=== PATIENT | male | born 1955 | race Caucasian/White ===

== ENCOUNTER 2018-04-27 08:57 | Outpatient (CLI) | payer MEDICARE ==
--- NOTE | 2018-04-27 11:50 | MRI ---
MRI CERVICAL SPINE WITHOUT CONTRAST: HISTORY: M48.02, cervical stenosis. COMPARISON: None. FINDINGS: The cerebellar tonsils remain above the foramen magnum. Background signal of the cord is normal. No adenopathy. Paraspinal musculature is normal. Levels are as follows: C2-3: Low-grade central posterior disk protrusion. No significant neural foraminal or spinal canal narrowing. C3-4: Mild uncinate process hypertrophy. Mild disk desiccation. No neural foraminal or spinal benjamin l narrowing. C4-5: Moderate degenerative disk space height loss. Moderate uncinate process hypertrophy. Mild fa cet arthropathy. Posterior disk-osteophyte complex. The spinal canal is not significantly narrowed. C5-6: Moderate degenerative disk space height loss. Circumferential disk bulge. There is asymmetri c left-sided posterior disk osteophyte complex causing moderate to severe left-sided neural foramina l narrowing. No significant right-sided neural foraminal narrowing. C6-7: Mild disk desiccation. No neural foraminal or spinal canal narrowing. IMPRESSION: Moderate spondylosis as described above worst at C5-6. POS: [facility]
--- NOTE | 2018-04-27 12:01 | MRI ---
MRI THORACIC SPINE WITHOUT CONTRAST: Date: 04/27/18 HISTORY: Stenosis. Pain. COMPARISON: None. FINDINGS: No fracture or malalignment. There are moderate spondylotic changes of the spine with moderate levosc oliosis of the upper thoracic spine. There is associated Modic Type I and Type II end plate changes. There are multilevel low grade posterior disc osteophyte complexes throughout the spine without signi ficant spinal canal narrowing. A broad based posterior disc osteophyte complex at T8-9 causes moderat e bilateral neural foraminal narrowing. Spinal canal at this level measures approximately 9 mm. At T9 -T10, there is another posterior disc osteophyte complex also causing moderate bilateral neural kevin inal narrowing, as well as effacement of the ventral CSF space. Spinal canal at this level measures a pproximately 9 mm. Aortic contour is nonaneurysmal. Paraspinal musculature is symmetric. IMPRESSION: Mild to moderate spondylosis as described above, predominately due to levoscoliosis. There is subsequ ent multilevel neural foraminal narrowing with concern for possible nerve root impingement. POS: [facility]
--- NOTE | 2018-04-27 12:09 | MRI ---
MRI LUMBAR SPINE WITHOUT CONTRAST: HISTORY: Pain. Spinal stenosis. COMPARISON: None. FINDINGS: No hydronephrosis. No retroperitoneal adenopathy. The aorta is nonaneurysmal. There are multilevel modic type I and type II endplate changes throughout the lumbar spine, worse at L3-L4, L4-L5, and L5 -S1. There is narrowing at the L3-L4, L4-L5, L5-S1 interspinous spaces, between the spinous processes, wit h some sclerosis and erosive changes. There is narrowing of the spinal canal throughout the lower lumbar spine due to increased posterior e pidural fat. The conus medullaris terminates at the inferior endplate of L1. Levels are as follows: T12-L1: No significant neural foraminal or spinal canal narrowing. Normal disks. L1-L2: No neural foraminal or spinal canal narrowing. Normal disks. L2-L3: Mild disk desiccation. Circumferential disk bulge, mild. Moderate facet arthropathy. Poste rior disk osteophyte complexes causing moderate bilateral neural foraminal narrowing. Abnormally inc reased posterior epidural fat. The spinal canal measures approximately 7 mm. L3-L4: Posterior disk osteophyte complex, chronic. There is abnormal increased epidural fat posteri maurice. The spinal canal measures approximately 6 mm. Moderate left and moderate to severe right-side d neural foraminal narrowing with abutment of the exiting and traversing right-sided nerve roots. L4-L5: Moderate degenerative disk space height loss and circumferential disk bulge. Moderate facet arthrosis. Moderate bilateral neural foraminal narrowing with abutment of the exiting and traversing right-sided nerve roots and a traversing left-sided nerve root. The spinal canal is narrowed approx imately 6 mm. Abnormal increase in dorsal epidural fat. L5-S1: Severe degenerative disk space height loss. Large posterior disk osteophyte complex. Extens julio facet arthrosis. There is moderate right and moderate to severe left-sided neural foraminal narr owing. There is abutment of the exiting and traversing left-sided nerve roots and traversing right-s ided nerve root. IMPRESSION: Multilevel neural foraminal and spinal canal narrowing, as described above, with multiple levels of n erve root abutment and spinal stenosis. POS: [facility]
== END 2018-04-27 08:58 | disposition home or self-care (01) ==
LOC: MRI 08:57
PROVIDERS: ATTEND Family Medicine
DX: M47.22 Other spondylosis with radiculopathy, cervical region (principal); M48.02 Spinal stenosis, cervical region; M48.061 Spinal stenosis, lumbar region without neurogenic claudication; M99.83 Other biomechanical lesions of lumbar region; M99.82 Other biomechanical lesions of thoracic region
CPT/HCPCS: 72141; 72146; 72148

== ENCOUNTER 2018-05-22 10:21 | Outpatient (CLI) | payer MEDICARE | END 2018-05-22 10:22 | disposition home or self-care (01) | LOC: BICCT 10:21 | PROVIDERS: ATTEND Family Medicine | DX: R91.8 Other nonspecific abnormal finding of lung field (principal); J98.11 Atelectasis; S22.41XD Multiple fractures of ribs, right side, subsequent encounter for fracture with routine healing | CPT/HCPCS: 71250 ==

== ENCOUNTER 2018-09-27 07:52 | Outpatient (CLI) | payer MEDICARE ==
--- NOTE | 2018-09-27 09:47 | CT ---
CHEST CT WITH CONTRAST: INDICATIONS: Tobacco abuse. COMPARISON: Chest CT exam from 05/22/2018. FINDINGS: There is a persistent focus of consolidation involving the medial aspect of the right middle lobe. S cattered granulomatous calcifications are present. There is no pleural effusion or pneumothorax. Th ere are stable borderline-sized mediastinal lymph nodes. No acute pathology of the partially imaged upper abdomen. Chronic rib deformities are again seen within the left chest. IMPRESSION: 1. Persistent focus of consolidation at the medial aspect of the right middle lobe. Consider a six- month follow-up examination for continued surveillance. 2. Granulomatous disease. CODE T POS: [facility]
[2018-09-27] MEDS ORDERED: ISOVUE-370 76%-LOCM 1 ML ONE (16:28)
== END 2018-09-27 07:53 | disposition home or self-care (01) ==
LOC: BICCT 07:52
PROVIDERS: ATTEND Family Medicine
DX: R91.8 Other nonspecific abnormal finding of lung field (principal); F17.200 Nicotine dependence, unspecified, uncomplicated; D71 Functional disorders of polymorphonuclear neutrophils
CPT/HCPCS: 71260; 82565

== ENCOUNTER 2019-08-27 12:23 | Emergency (ER) | payer MEDICARE ==
[2019-08-27] MEDS ORDERED: Ketorolac Tromethamine 30 MG/ML VIAL ONE (13:04)
--- NOTE | 2019-08-27 13:34 | RAD ---
EXAM: XR Lumbar Spine 2 Or 3 View PROVIDED CLINICAL HISTORY: Chronic neck and low back pain. COMPARISON: 07/26/2013. FINDINGS: There are 5 nonrib-bearing lumbar-type vertebral bodies. There is straightening of the normal lumbar curvature. Multilevel degenerative changes are seen in the lower lumbar spine. There is narrowing of the intervertebral disc spaces with vacuum phenomenon present at the L3-4, L4-5, and L5-S1 levels with osteophytes seen anteriorly at these levels. Narrowing of the intervertebral disc spaces has progressed compared to study in 2013. Facet degenerative change are seen in the lower lumbar spine. Vertebral body heights are within normal limits. No fracture or subluxation is seen. There is slight left convex curvature of the lumbar spine. Vascular calcifications are seen in the abdominal aorta and involving the iliac arteries. Calcificati ons are seen in the expected location of the prostate gland. IMPRESSION: Degenerative changes primarily involving the lower lumbar spine which have progressed when compared t o the study in 2012.
--- NOTE | 2019-08-27 14:14 | RAD ---
CERVICAL SPINE 3 VIEWS: Date: 08/27/19 HISTORY: Cervical pain. COMPARISON: 07/26/13. FINDINGS: Degenerative changes at the mid and lower cervical spine again noted. Mild disc narrowing and degener ative hypertrophic changes are noted at C4-5, C5-6, and C6-7. Loss of disc space most prominent at C 4-5 and C5-6, similar in appearance to the prior exam. Anterior osteophytes at these levels are also similar. Vertebral body height is preserved. There is mild anterior wedging of C5 which is stable fro m the prior exam of 2012. IMPRESSION: Degenerative changes of mid and lower cervical spine, most prominent at C4-5 and C5-[address] able in appearance from prior exam of 2012. POS: [facility]
== END 2019-08-27 14:06 | disposition home or self-care (01) ==
LOC: ERS 12:23
DX: G89.29 Other chronic pain (principal); M54.2 Cervicalgia; M54.5 Low back pain; E78.5 Hyperlipidemia, unspecified; E78.00 Pure hypercholesterolemia, unspecified; I10 Essential (primary) hypertension; F17.210 Nicotine dependence, cigarettes, uncomplicated; Z79.899 Other long term (current) drug therapy
CPT/HCPCS: 72040; 72100; 96372; J1885

== ENCOUNTER 2019-09-18 09:25 | Emergency (ER) | payer MEDICARE ==
[2019-09-18] MEDS ORDERED: Ketorolac Tromethamine 60 MG/2 ML VIAL ONE (10:43)
== END 2019-09-18 10:50 | disposition home or self-care (01) ==
LOC: ERS 09:25
DX: M54.5 Low back pain (principal); E78.5 Hyperlipidemia, unspecified; E78.00 Pure hypercholesterolemia, unspecified; I10 Essential (primary) hypertension; F17.200 Nicotine dependence, unspecified, uncomplicated; Z79.899 Other long term (current) drug therapy
CPT/HCPCS: 99283; J1885

== ENCOUNTER 2019-10-12 07:45 | Outpatient (CLI) | payer MEDICARE ==
[2019-10-12 08:51] LABS: Estimated GFR-MDRD - POC Greater than 90
--- NOTE | 2019-10-12 09:37 | CT ---
Exam: Chest CT scan with IV contrast: HISTORY: Shortness of breath COMPARISON: 09/27/2018 FINDINGS: Stable persistent pleural-based parenchymal changes in the medial aspect of the right middle lobe pro bably scarring or chronic atelectasis. There are a few scattered calcified granulomata bilaterally. There are some scattered calcified lymph nodes within the mediastinum system with old granulomatous d isease. No pleural effusion or pericardial effusion. No mediastinal mass or adenopathy. Visualized upper abdomen appears unremarkable. IMPRESSION: Stable old granulomatous disease. Stable pleural-based parenchymal changes in the medial aspect of the right middle lobe evidence for s carring or chronic atelectasis.
[2019-10-12] MEDS ORDERED: Iopamidol 370 76% 100 ML VIAL ONE (11:36)
== END 2019-10-12 07:46 | disposition home or self-care (01) ==
LOC: CT 07:45
PROVIDERS: ATTEND Family Medicine
DX: R91.8 Other nonspecific abnormal finding of lung field (principal); D71 Functional disorders of polymorphonuclear neutrophils
CPT/HCPCS: 71260; 82565; Q9967

== ENCOUNTER 2019-10-22 08:51 | Outpatient (CLI) | payer MEDICARE ==
--- NOTE | 2019-10-22 10:01 | MRI ---
MR the lumbar spine without contrast INDICATION: Lumbar radiculopathy COMPARISON: Prior MR the lumbar spine dated April 27, 2018 TECHNIQUE: Multiplanar multisequence MR images were obtained of lumbar spine without IV contrast. FINDINGS: Bone marrow: There is Modic endplate degenerative change at L3-4, L4-5 and L5-S1. There is prominent loss of the normal disc space height at L3-4 through L5-S1. There is moderate loss of normal disc space height and signal at L2-3. Distal spinal cord and conus: Normal. The conus seen to terminate at L1. Visualized retroperitoneum and paraspinal soft tissues: Normal. Vertebral levels: L5-S1: At L5-S1 there is a broad-based disc osteophyte complex and facet hypertrophy in addition to l oss of disc space height inducing mild right and moderate left neural foraminal narrowing. The degree of neural foraminal narrowing is stable to the comparison.. L4-5: There is a broad-based disc bulge with facet hypertrophy and ligamentum flavum hypertrophy now inducing moderate central canal narrowing where previously it was inducing only mild central canal narrowing. The disc bulge and facet hypertrophy induces mild bilateral neural foraminal narrowing whi ch has also progressed from the prior exam. L3-4: There is an asymmetric to the right broad-based disc bulge with facet hypertrophy inducing mild central canal narrowing with moderate to severe right neural foraminal narrowing. This is stable to the prior exam. L2-3: There is a broad-based disc bulge that is asymmetric to the left. This is inducing stable mild left neural foraminal narrowing. L1-L2: No appreciable central canal or neuroforaminal narrowing. T12-L1: No appreciable central canal or neuroforaminal narrowing. IMPRESSION: 1. Worsening broad-based disc bulge and facet hypertrophy at L4-5 induces worsening moderate central canal narrowing with worsening mild bilateral neural foraminal narrowing. 2. Stable neural foraminal narrowing at L5-S1, L3-4 and L2-3 as above. 3. Stable mild central canal narrowing at L3-4.
== END 2019-10-22 08:52 | disposition home or self-care (01) ==
LOC: BICMRI 08:51
PROVIDERS: ATTEND Neurological Surgery
DX: M54.16 Radiculopathy, lumbar region (principal); M48.8X6 Other specified spondylopathies, lumbar region; M48.061 Spinal stenosis, lumbar region without neurogenic claudication; M48.07 Spinal stenosis, lumbosacral region
CPT/HCPCS: 72148

== ENCOUNTER 2020-04-03 09:15 | Outpatient (CLI) | payer MEDICARE ==
--- NOTE | 2020-04-03 15:22 | MRI ---
MRI CERVICAL SPINE WITHOUT CONTRAST: 04/03/20 HISTORY: Acute neck pain. COMPARISON: Comparison made to MRI of the cervical spine from 04/27/18. FINDINGS: Degenerative changes of the cervical spine again noted. Osteophytes from the cervical vertebra most p rominent at C3, C4, C5 and C6 levels. Mild loss disc space at C4-5 and C5-6 appears stable from the p rior exam. No evidence of vertebral body edema. No acute compression. Mild posterolisthesis at C5-6 is again seen measured at 2 to 3 mm. This is stable from 2018. C3-4: Mild posterior disc bulge and spondylosis efface the anterior subarachnoid space. No significan t cord impingement. No foraminal stenosis. C4-5: Posterior disc bulge and spondylosis abut the anterior cord. Mild left foraminal stenosis due t o facet and uncinate hypertrophy. C5-6: Mild posterolisthesis noted above. Posterior disc bulge and spondylosis efface the anterior sub arachnoid space. These changes abut the anterior cord on the left. There is left foraminal stenosis d ue to the disc osteophyte complex and facet hypertrophy. C6-7: No significant disc bulge or spondylosis. The anterior subarachnoid space is well preserved. No central canal or foraminal stenosis. Cervical cord signal is normal. IMPRESSION: Degenerative changes. Degenerative disc change are prominent at C4-5 and C5-6 with foraminal stenosis at these levels as described above. Findings are similar to the exam of 2018. POS: [facility]
== END 2020-04-03 09:16 | disposition home or self-care (01) ==
LOC: BICMRI 09:15
PROVIDERS: ATTEND Neurological Surgery
DX: M54.2 Cervicalgia (principal); M47.812 Spondylosis without myelopathy or radiculopathy, cervical region; M50.321 Other cervical disc degeneration at C4-C5 level; M48.02 Spinal stenosis, cervical region
CPT/HCPCS: 72141

== ENCOUNTER 2020-06-04 10:53 | Outpatient (CLI) | payer MEDICARE ==
--- NOTE | 2020-06-04 14:21 | CT ---
CT lumbar spine noncontrast: 06/04/2020 HISTORY: 64-year-old male with lumbar radiculopathy and low back pain comparison: No prior lumbar spine CTs. FINDINGS: Review of CT chest of 10/12/2019 demonstrates 12 fully formed paired ribs. Next level, L1, has bilate ral tiny accessory ribs. Last lumbar level is L5. Vacuum joint phenomenon and at least mild sclerosis of bilateral SI joints. No vertebral body collapse. T12-L1: Disc space maintained. Mild disc bulge. No central or neural foraminal stenosis. L1-2: Essentially normal. L2-3: Mild disc space narrowing. Diffuse disc bulge. Mild bilateral facet DJD with mild ligamentum fl avum thickening. Mild central spinal canal stenosis. Posterior epidural fat pad. Mild to moderate thecal sac stenosis. Mild bilateral neural foraminal stenosis. L3-4: Mild focal levoscoliosis centered at this level. Mild chronic grade 1 left lateral subluxation of L3 on L4. Asymmetrically severe right-sided discogenic degenerative changes, with severe right disc space narrowing, right vacuum disc phenomenon, right endplate sclerosis, and multiple tiny right subcortical endplate focal defects plus right lateral-far lateral prominent disc-osteophyte complex. Mild to moderate central spinal canal stenosis. Diffuse disc bulge-osteophyte complex. Poste rior epidural fat pad. Mild to moderate central spinal canal stenosis. Moderate to severe thecal sac stenosis. In addition to the to the diffuse disc bulge, there is a superimposed right paracentral , and right lateral asymmetrical disc bulge or disc herniation that further indents the right side of the thecal sac. Apparently severe right neural foraminal stenosis. L4-5: Severe disc space narrowing. Vacuum disc phenomenon. Prominent diffuse disc bulge. Moderate rig ht neural foraminal stenosis. Moderate to severe left neural foraminal stenosis. Left vacuum facet joint phenomenon. Mild left facet DJD. Mild central spinal canal stenosis. Prominent posterior epidur al fat pad. Severe thecal sac stenosis. L5-S1: Severe disc space narrowing. Vacuum disc phenomenon. Endplate sclerosis. Central and bilateral paracentral chronic prominent disc-osteophyte complex indents the ventral surface of thecal sac, and chronically abuts and slightly posteriorly displaces bilateral S1 nerve roots. No central spinal canal stenosis or thecal sac stenosis despite this. Moderate right neural foraminal stenosis. Severe left neural foraminal stenosis. Bilateral mild facet DJD. IMPRESSION: 1. Lumbar spondylosis with severe degenerative disc disease at the lowest 3 levels; associated with d egenerative levoscoliosis centered at L3-4. 2. High-grade right neural foraminal stenosis at L3-4 and severe left neural foraminal stenosis at L5 -S1 and L4-5. 3. Multilevel thecal sac stenosis (which, as usual, appears worse on CT than MRI). This includes rebecca re thecal sac stenosis (but not the entire spinal canal) at L4-5.
== END 2020-06-04 10:54 | disposition home or self-care (01) ==
LOC: BICCT 10:53
PROVIDERS: ATTEND Neurological Surgery
DX: M47.26 Other spondylosis with radiculopathy, lumbar region (principal); M51.17 Intervertebral disc disorders with radiculopathy, lumbosacral region; M41.9 Scoliosis, unspecified; M48.061 Spinal stenosis, lumbar region without neurogenic claudication; M48.07 Spinal stenosis, lumbosacral region
CPT/HCPCS: 72131

== ENCOUNTER 2020-06-20 05:12 | Outpatient (CLI) | payer MEDICARE, OTHER ==
[2020-06-20 17:20] LABS: SARS-CoV-2 MS2 Positive; SARS-CoV-2 N Gene Negative; SARS-CoV-2 S Gene Negative; SARS-CoV-2 by NAA Not Detected (NotDetected); SARS-CoV-2 orf1ab Negative
== END 2020-06-20 05:13 | disposition home or self-care (01) ==
LOC: LABBT 05:12
PROVIDERS: ATTEND Emergency Medicine
DX: Z01.818 Encounter for other preprocedural examination (principal); Z11.59 Encounter for screening for other viral diseases; M54.16 Radiculopathy, lumbar region
CPT/HCPCS: 93005; U0003; 87635; 93010

== ENCOUNTER 2020-06-25 06:09 | Day surgery (SDC) | payer MEDICARE ==
[2020-06-18 15:12] VITALS: BMI 29.9
--- NOTE | 2020-06-24 15:46 | HP ---
HISTORY OF PRESENT ILLNESS: Mr. Lopes is a 64-year-old gentleman, who is known to us from prior evaluations of low back pain and bilateral leg pains in poly-dermatomal distributions. He has attempted countless conservative methods to manage his pain including pain management with injections, medications as well as with physical therapy. All of these have which failed, and as such, hopes to move forward with possible surgical intervention. He has new MRI scan from [place] that reveals significant stenosis from L4 through S1. He has particularly significant foraminal stenosis at both of these levels. He hopes to discuss possible surgical management. PAST MEDICAL HISTORY: Significant for hypercholesterolemia, chronic pain syndrome, depression, migraine, hypotension, and asthma. PAST SURGICAL HISTORY: Lumbar decompression and a rhizotomy procedure. CURRENT MEDICATIONS: 1. Pravastatin. 2. Lexapro. 3. Flexeril. 4. Celecoxib. 5. ProAir. 6. Lyrica. 7. Fletcher. 8. Alprazolam. 9. Clonazepam. ALLERGIES: NO KNOWN DRUG ALLERGIES. PHYSICAL EXAMINATION: The patient is alert and oriented x3. Gait is severely antalgic and slowed. Lower extremity motor exam is normal, although limited by pain. ASSESSMENT: Lumbar spinal stenosis and radiculopathy. PLAN: Dr. Felder met with the patient, reviewed imaging, and advocated for a lumbar decompression and fusion from L4 through S1. He explained to the patient the risks, benefits, and alternatives to the procedure. The patient expressed understanding and elected to move forward with surgery as discussed. I do believe the patient is mentally competent and capable of making medical decisions for himself, and we will move forward with surgery as planned. Job ID: [id number]
[2020-06-25] MEDS ORDERED: Famotidine/PF 20 mg/2ml Vial ONE (06:21)
[2020-06-25] MEDS ORDERED: Fentanyl 100 MCG/2 ML VIAL ONE ×5 (06:21→11:28)
[2020-06-25] MEDS ORDERED: SUGAMMADEX SODIUM 500 MG/5 ML VIAL ONE (06:21)
[2020-06-25] MEDS ORDERED: Bupivacaine PF 0.5% 30 ML VIAL ONE (06:39)
[2020-06-25] MEDS ORDERED: EPINEPHrine 1 MG/ML AMP ONE (06:39)
[2020-06-25] MEDS ORDERED: Thrombin 5000 UNITS/5 ML VIAL ONE (06:39)
[2020-06-25] MEDS ORDERED: Midazolam HCl 2 mg/2 ml Vial ONE (07:01)
[2020-06-25] MEDS ORDERED: Ondansetron PF 4 MG/2 ML Vial ONE (09:55)
[2020-06-25] MEDS ORDERED: Dexamethasone 20 MG/5 ML VIAL ONE (09:55)
[2020-06-25] MEDS ORDERED: Naloxone HCl 0.4 mg/ml Vial ONE (09:55)
[2020-06-25] MEDS ORDERED: Lidocaine 1% PF 5 ML VIAL ONE (09:55)
[2020-06-25] MEDS ORDERED: Rocuronium Bromide 10 MG/ML (10ML VIAL) ONE (09:55)
[2020-06-25] MEDS ORDERED: Metoclopramide HCl 10 MG/2 ML VIAL ONE (09:55)
[2020-06-25] MEDS ORDERED: PROPOFOL 200 MG/20 ML VIAL ONE (09:55)
[2020-06-25] MEDS ORDERED: Ketorolac Tromethamine 30 MG/ML VIAL ONE (09:55)
[2020-06-25] MEDS ORDERED: EPHEDRINE 25 MG/5 ML SYRINGE ONE (09:55)
[2020-06-25] MEDS ORDERED: PHENYLEPHRINE-NS 100 MCG/ML 10 ML SYRINGE ONE (09:55)
[2020-06-25] MEDS ORDERED: Ondansetron HCl/PF 4 MG/2 ML Vial IVP PRN (10:01)
[2020-06-25] MEDS ORDERED: Promethazine HCl 25 MG/ML VIAL IM PRN (10:01)
[2020-06-25] MEDS ORDERED: HYDROmorphone 2 MG/ML VIAL SLOW IVP PRN (10:01)
[2020-06-25] MEDS ORDERED: Promethazine HCl 25 MG/ML VIAL SLOW IVP PRN (10:01)
[2020-06-25] MEDS ORDERED: Tamsulosin HCl 0.4 MG CAP ONE (10:58)
[2020-06-25] MEDS ORDERED: Morphine 4 MG/ML VIAL ONE (11:15)
[2020-06-25] MEDS ORDERED: Morphine 2 MG/ML VIAL ONE (11:36)
--- NOTE | 2020-06-25 11:52 | OP ---
DATE OF PROCEDURE: 06/25/2020 VICE PRESIDENT OF OPERATIONS: Norman Mclean PA-C INDICATION: Pain. DIAGNOSES: Advanced degenerative disk disease with associated low back pain and lumbar radiculopathy. PROCEDURES PERFORMED: L4-S1 posterolateral instrumented fusion, bilateral L4-L5 and L5-S1 laminotomies, bilateral L5-S1 facetectomies, placement of allograft, and placement of autograft. ANESTHESIA: General. DESCRIPTION OF PROCEDURE: The patient was brought into the operating room and placed under general anesthesia. He was flipped from the supine to prone position on the operating room table. A linear incision was planned spanning L4 through S1. After prepping and draping and after an appropriate preoperative pause, the incision was created. The soft tissues were swept away from midline. Self-retaining retractors were placed in the wound for optimal exposure. After confirming appropriate levels with C-arm fluoroscopy, laminotomy was performed over the pedicles of L4, L5, and S1. At L5-S1 bilaterally, laminectomies were performed in order to decompress the lateral recess to perform a foraminotomy. After exposing the pedicles spanning L4-S1, pedicle screws were placed from L4-S1 bilaterally with the aid of C-arm fluoroscopy. An intraoperative 3D CT scan was then performed to confirm appropriate placement of hardware. Rods were then placed across the screw heads and final tightened. Allograft and autograft material were then placed within the lateral confines of the instrumentation construct. The wound was then irrigated. Hemostasis was maintained throughout. The wound was then closed in anatomic layers, and a pressure dressing was applied. There were no known procedural complications. Job ID: [id number]
[2020-06-25] MEDS ORDERED: HYDROcodone/Acetaminophen 5/325 mg Tablet ONE (12:19)
== END 2020-06-25 13:55 | disposition home or self-care (01) ==
LOC: SDC 06:09
PROVIDERS: ATTEND Neurological Surgery
PROC: 0SG1071 Fusion of 2 or more Lumbar Vertebral Joints with Autologous Tissue Substitute, Posterior Approach, Posterior Column, Open Approach (ICD-10-PCS; principal; 2020-06-25)
DX: M51.16 Intervertebral disc disorders with radiculopathy, lumbar region (principal); M48.061 Spinal stenosis, lumbar region without neurogenic claudication; M48.07 Spinal stenosis, lumbosacral region; E78.00 Pure hypercholesterolemia, unspecified; G89.4 Chronic pain syndrome; F32.9 Major depressive disorder, single episode, unspecified; G43.909 Migraine, unspecified, not intractable, without status migrainosus; J45.909 Unspecified asthma, uncomplicated; Z79.899 Other long term (current) drug therapy
CPT/HCPCS: 20930; 20936; 22612; 22614; 22842; 76000; C1713 ×3; C1768; J2270; J0171; J0690; J1100; J1885; J2250; J2310; J2405; J2704; J2765; J3010; S0020; S0028

== ENCOUNTER 2020-08-22 10:25 | Outpatient (CLI) | payer MEDICARE ==
--- NOTE | 2020-08-22 12:03 | RAD ---
LUMBAR SPINE SERIES 2 VIEWS: Date: 08/22/2020 HISTORY: Lumbar radiculopathy. Pain radiating down right leg. Left leg numbness. COMPARISON: 08/27/2019 exam. FINDINGS: Since the prior study, bilateral pedicle screws have been placed at L4, L5, and S1. Severe disc narro wing is seen at the L4-5 and L5-S1 levels. Fairly pronounced disc narrowing is also seen at L2-3 and L3-4. Scoliotic change convex to the left. IMPRESSION: Marked arthritic changes of the spine and postop change. POS: [facility]
== END 2020-08-22 10:26 | disposition home or self-care (01) ==
LOC: BICRAD 10:25
PROVIDERS: ATTEND Neurological Surgery
DX: M47.26 Other spondylosis with radiculopathy, lumbar region (principal); Z98.890 Other specified postprocedural states
CPT/HCPCS: 72100

== ENCOUNTER 2020-09-08 13:22 | Outpatient (CLI) | payer MEDICARE ==
--- NOTE | 2020-09-08 14:34 | CT ---
LUMBAR SPINE CT WITHOUT CONTRAST: HISTORY: Radiculopathy. Recent lumbar fusion. COMPARISON: 06/04/2020. FINDINGS: Appropriate attenuation of the visualized paraspinal muscles and solid organs. Five lumbar-type vertebrae. Lumbar spine vertebral body height is maintained. No fracture. Mild leftw malik curvature of the lumbar spine. Vacuum disc phenomenon at L3-L4, L4-L5 and L5-S1. There are are transpedicular screws with. Lucency at L4, L5 and S1. Right S1 transpedicular screw extends beyond the anterior margin of the ass ociated vertebral body. Limited evaluation the contents of the central spinal canal and neural foramina due to technique. L1-L2: Raw based disc bulge. Mild central canal stenosis. Bilateral neural foramina. L2-L3: Broad-based disc bulge with at least moderate central canal stenosis. There does appear to be minimal inferior and superior disc hydration. Small focus of air attenuation in the inferior margin of the L2-L3 disc may represent a tiny focus of vacuum disc phenomenon. Mild bilateral neural foramin al narrowing. L3-L4: Vacuum disc phenomenon. Broad-based disc bulge, ligamentum flavum thickening and facet hypertr ophy result in moderate to severe central canal stenosis. Moderate right neural foraminal narrowing. Patent left neural foramen. L3-4-L5: Vacuum disc phenomenon. Broad-based disc bulge with a right paracentral disc herniation. Ove rall there is moderate stenosis of the thecal sac. There is presumed obscuration the traversing right L5 nerve root. Moderate bilateral neural foraminal narrowing. The degree of central canal steno sis and subarticular stenosis has slightly decreased when compared to the previous exam. L5-S1: Redemonstration of vacuum disc phenomenon. Bpyxn-msngy-cyir osteophyte complex. Moderate centr al canal stenosis. Moderate to severe right and left foraminal narrowing. There is partial resection of the right facet. Bone graft material at the level of the fusion hardware is noted. IMPRESSION: 1. Interval placement of bilateral transpedicular screws at L4, L5 and S1. No perihardware lucency. 2. Varying degrees of significant central canal stenosis and significant neural foraminal narrowing a s detailed above. Transcribed Date/Time: 09/08/2020 2:49 PM
== END 2020-09-08 13:23 | disposition home or self-care (01) ==
LOC: BICCT 13:22
PROVIDERS: ATTEND Neurological Surgery
DX: M54.16 Radiculopathy, lumbar region (principal); M48.061 Spinal stenosis, lumbar region without neurogenic claudication; M48.07 Spinal stenosis, lumbosacral region; Z98.890 Other specified postprocedural states
CPT/HCPCS: 72131

== ENCOUNTER 2021-01-31 09:53 | Emergency (ER) | payer MEDICARE | END 2021-01-31 11:39 | disposition left against medical advice (07) | LOC: ERS 09:53 | DX: F43.0 Acute stress reaction (principal); E78.5 Hyperlipidemia, unspecified; E78.00 Pure hypercholesterolemia, unspecified; I10 Essential (primary) hypertension; F17.210 Nicotine dependence, cigarettes, uncomplicated | CPT/HCPCS: 99283 ==

== ENCOUNTER 2021-08-31 13:21 | Emergency (ER) | payer MEDICARE ==
[2021-08-31 14:06] LABS: #Basophils 0.1 thou/uL (0.0-0.2); #Eosinphils 0.6 thou/uL (0.0-0.7); #Lymphocytes 2.9 thou/uL (1.20-3.40); #Monocytes 1.1 thou/uL (0.11-0.59); %Basophils 0.9 % (0.0-1.0); %Eosinophils 6.2 % (0.0-10.0); %Lymphocytes 29.7 % (21.0-51.0); %Monocytes 11.7 % (0.0-10.0); %Neutrophils 51.5 % (42.0-75.0); Mean Corpuscular HGB CONC 33.1 g/dL (32.0-36.0); Mean Corpuscular Hemoglobin 32.8 pg (27.0-31.0); Mean Corpuscular Volume 99.1 fL (78.0-98.0); Mean Platelet Volume 8.2 fL (7.4-10.4); Platelet Count 198 thou/uL (130-400); Red Blood Cell (RBC) Count 5.16 mill/uL (4.70-6.10); White Blood Cell (WBC) Count 9.8 thou/uL (4.8-10.8)
[2021-08-31 14:27] LABS: ALT (SGPT) 25 U/L (8-55); AST (SGOT) 23 U/L (5-34); Albumin 4.3 g/dL (3.4-4.8); Alkaline Phosphatase 81 U/L (40-110); Anion Gap 14 mmol/L (10-20); BUN (Urea Nitrogen) 13 mg/dL (8.4-25.7); Bilirubin, Total 0.4 mg/dL (0.2-1.2); Calc. Creatinine Clearance 0 mL/min (70-130); Calcium 9.9 mg/dL (7.8-10.44); Carbon Dioxide 26 mmol/L (23-31); Chloride 105 mmol/L (98-107); Globulin 3.1 g/dL (2.4-3.5); Glucose 98 mg/dL (80-115); Potassium 3.9 mmol/L (3.5-5.1); Protein, Total 7.4 g/dL (5.8-8.1); Sodium 141 mmol/L (136-145)
[2021-08-31 18:31] LABS: Troponin I Less than 0.010 ng/mL (< 0.028)
== END 2021-08-31 18:57 | disposition home or self-care (01) ==
LOC: ERS 13:21
DX: R07.9 Chest pain, unspecified (principal); I10 Essential (primary) hypertension; E78.5 Hyperlipidemia, unspecified; E78.00 Pure hypercholesterolemia, unspecified; F17.210 Nicotine dependence, cigarettes, uncomplicated; Z79.899 Other long term (current) drug therapy
CPT/HCPCS: 36415; 36416; 70450; 71045; 80053; 84484; 85025; 93005

== ENCOUNTER 2021-10-29 11:32 | Emergency (ER) | payer MEDICARE | END 2021-10-29 12:33 | disposition home or self-care (01) | LOC: ERS 11:32 | DX: K04.7 Periapical abscess without sinus (principal); K02.9 Dental caries, unspecified; I10 Essential (primary) hypertension; E78.5 Hyperlipidemia, unspecified; F17.210 Nicotine dependence, cigarettes, uncomplicated; Z79.899 Other long term (current) drug therapy | CPT/HCPCS: 99283 ==

== ENCOUNTER 2021-11-11 10:25 | Emergency (ER) | payer MEDICARE ==
[2021-11-11] MEDS ORDERED: Ketorolac Tromethamine 30 MG/ML VIAL ONE ×2 (12:06→12:07)
== END 2021-11-11 12:45 | disposition home or self-care (01) ==
LOC: ERS 10:25
DX: K08.89 Other specified disorders of teeth and supporting structures (principal); I10 Essential (primary) hypertension; E78.5 Hyperlipidemia, unspecified; E78.00 Pure hypercholesterolemia, unspecified; F17.210 Nicotine dependence, cigarettes, uncomplicated
CPT/HCPCS: 96372; 99282; J1885

== ENCOUNTER 2022-03-29 06:20 | Emergency (ER) | payer MEDICARE | END 2022-03-29 06:49 | disposition home or self-care (01) | LOC: ERS 06:20 | DX: K05.00 Acute gingivitis, plaque induced (principal); E78.5 Hyperlipidemia, unspecified; E78.00 Pure hypercholesterolemia, unspecified; I10 Essential (primary) hypertension; F17.210 Nicotine dependence, cigarettes, uncomplicated | CPT/HCPCS: 99282 ==

== ENCOUNTER 2023-06-19 14:08 | Emergency (ER) | payer OTHER, MEDICARE ==
[2023-06-19] MEDS ORDERED: Metoclopramide HCl 10 MG/2 ML VIAL ONE (14:55)
[2023-06-19] MEDS ORDERED: diphenhydrAMINE 50 MG/ML VIAL ONE (14:55)
[2023-06-19] MEDS ORDERED: Ketorolac Tromethamine 30 MG/ML VIAL ONE (14:55)
[2023-06-19 15:32] LABS: #Basophils 0.1 thou/uL (0.0-0.2); #Eosinphils 0.4 thou/uL (0.0-0.7); #Monocytes 0.9 thou/uL (0.11-0.59); #Neutrophils 5.1 thou/uL (1.40-6.50); %Eosinophils 4.6 % (0.0-10.0); %Lymphocytes 25.2 % (21.0-51.0); %Monocytes 10.4 % (0.0-10.0); %Neutrophils 58.5 % (42.0-75.0); Hemoglobin 17.5 g/dL (14.0-18.0); Mean Corpuscular HGB CONC 33.5 g/dL (32.0-36.0); Mean Corpuscular Hemoglobin 32.4 pg (27.0-31.0); Mean Corpuscular Volume 96.7 fl (78.0-98.0); Mean Platelet Volume 10.1 fL (7.4-10.4); Platelet Count 266 10x3/uL (130-400); RBC Distribution Width 12.9 % (11.5-14.5); White Blood Cell (WBC) Count 8.8 10x3/uL (4.8-10.8)
[2023-06-19 15:50] LABS: ALT (SGPT) 50 U/L (8-55); AST (SGOT) 34 U/L (5-34); Albumin 4.4 g/dL (3.4-4.8); Alkaline Phosphatase 91 U/L (40-110); Anion Gap 14 mmol/L (10-20); BUN (Urea Nitrogen) 12 mg/dL (8.4-25.7); Bilirubin, Total 0.3 mg/dL (0.2-1.2); Calc. Creatinine Clearance 0 mL/min (70-130); Calcium 9.5 mg/dL (7.8-10.44); Carbon Dioxide 26 mmol/L (23-31); Chloride 104 mmol/L (98-107); Estimated GFR 97; Globulin 2.9 g/dL (2.4-3.5); Glucose 105 mg/dL (80-115); Potassium 3.9 mmol/L (3.5-5.1); Protein, Total 7.3 g/dL (5.8-8.1); Sodium 140 mmol/L (136-145)
== END 2023-06-19 18:03 | disposition home or self-care (01) ==
LOC: ERS 14:08
DX: R51.9 Headache, unspecified (principal); F41.9 Anxiety disorder, unspecified; E78.00 Pure hypercholesterolemia, unspecified; I10 Essential (primary) hypertension
CPT/HCPCS: 36415; 70450; 80053; 84443; 84484; 85025; 93005; 96365; 96375; J1200; J1885; J2765

== ENCOUNTER 2023-11-30 10:04 | Emergency (ER) | payer MEDICARE, OTHER ==
[2023-11-30 10:42] LABS: #Basophils 0.1 thou/uL (0.0-0.2); #Eosinphils 0.2 thou/uL (0.0-0.7); #Monocytes 1.3 thou/uL (0.11-0.59); %Basophils 0.7 % (0.0-1.0); %Eosinophils 2.1 % (0.0-10.0); %Lymphocytes 24.5 % (21.0-51.0); %Monocytes 11.4 % (0.0-10.0); %Neutrophils 60.7 % (42.0-75.0); Hematocrit 52.7 % (42.0-52.0); Hemoglobin 18.3 g/dL (14.0-18.0); Mean Corpuscular HGB CONC 34.7 g/dL (32.0-36.0); Mean Corpuscular Hemoglobin 33.2 pg (27.0-31.0); Mean Corpuscular Volume 95.5 fl (78.0-98.0); Mean Platelet Volume 9.4 fL (7.4-10.4); Platelet Count 295 10x3/uL (130-400); RBC Distribution Width 12.7 % (11.5-14.5); Red Blood Cell (RBC) Count 5.52 mill/uL (4.70-6.10); White Blood Cell (WBC) Count 11.5 10x3/uL (4.8-10.8)
[2023-11-30 11:06] LABS: ALT (SGPT) 30 U/L (8-55); AST (SGOT) 30 U/L (5-34); Albumin 4.8 g/dL (3.4-4.8); Alkaline Phosphatase 90 U/L (40-110); Anion Gap 16 mmol/L (10-20); BUN (Urea Nitrogen) 12 mg/dL (8.4-25.7); Bilirubin, Total 0.8 mg/dL (0.2-1.2); Calc. Creatinine Clearance 0 mL/min (70-130); Carbon Dioxide 22 mmol/L (23-31); Chloride 101 mmol/L (98-107); Estimated GFR 97; Globulin 3.2 g/dL (2.4-3.5); Glucose 109 mg/dL (80-115); Lipase 26 U/L (8-78); Potassium 3.9 mmol/L (3.5-5.1); Sodium 135 mmol/L (136-145)
[2023-11-30 11:07] LABS: Troponin I Less than 0.010 ng/mL (< 0.028)
[2023-11-30 11:19] LABS: SARS-CoV-2 NAA Rapid Test Not Detected (NotDetected)
[2023-11-30 12:25] LABS: Bilirubin Negative (Negative); Blood, Urine Negative (Negative); Glucose, Urine (Dipstick) Negative (Negative); Ketone, Urine 15 mg/dL (Negative); Leukocyte Negative (Negative); Nitrite Negative (Negative); Protein, Urine (Dipstick) Negative (Neg-Trace); Specific Gravity, Urine 1.015 (1.005-1.030); Urobilinogen 0.2 mg/dL (Less than 2)
[2023-11-30 12:26] LABS: Clarity Clear (Clear)
[2023-11-30 12:37] LABS: Bacteria/HPF None Seen HPF (None Seen); RBC/HPF None Seen HPF (0-3); Squamous Epithelial None Seen HPF (0-3); WBC/HPF None Seen HPF (0-3)
[2023-11-30 12:38] LABS: Urine Culture Reflex Yes Yes
== END 2023-11-30 12:45 | disposition home or self-care (01) ==
LOC: ERS 10:04
DX: R05.1 Acute cough (principal); I10 Essential (primary) hypertension; F17.200 Nicotine dependence, unspecified, uncomplicated
CPT/HCPCS: 0240U; 71045; 80053; 81001; 83605; 83690; 84484; 85025; 85379; 87040; 87086; 93005; 96360; 96361; 99284

== ENCOUNTER 2023-12-07 09:14 | Emergency (ER) | payer OTHER ==
[2023-12-07 09:55] LABS: #Basophils 0.1 thou/uL (0.0-0.2); #Eosinphils 0.4 thou/uL (0.0-0.7); #Monocytes 1.1 thou/uL (0.11-0.59); #Neutrophils 5.5 thou/uL (1.40-6.50); %Basophils 1.1 % (0.0-1.0); %Lymphocytes 28.9 % (21.0-51.0); %Monocytes 11.3 % (0.0-10.0); %Neutrophils 54.3 % (42.0-75.0); Hematocrit 49.8 % (42.0-52.0); Hemoglobin 17.3 g/dL (14.0-18.0); Mean Corpuscular HGB CONC 34.7 g/dL (32.0-36.0); Mean Corpuscular Hemoglobin 33.5 pg (27.0-31.0); Mean Corpuscular Volume 96.3 fl (78.0-98.0); Mean Platelet Volume 9.2 fL (7.4-10.4); Platelet Count 319 10x3/uL (130-400); RBC Distribution Width 12.4 % (11.5-14.5); Red Blood Cell (RBC) Count 5.17 mill/uL (4.70-6.10); White Blood Cell (WBC) Count 10.1 10x3/uL (4.8-10.8)
[2023-12-07 10:42] LABS: ALT (SGPT) 37 U/L (8-55); AST (SGOT) 28 U/L (5-34); Albumin 4.6 g/dL (3.4-4.8); Alkaline Phosphatase 80 U/L (40-110); Anion Gap 12 mmol/L (10-20); BUN (Urea Nitrogen) 12 mg/dL (8.4-25.7); Bilirubin, Total 0.5 mg/dL (0.2-1.2); Calc. Creatinine Clearance 0 mL/min (70-130); Calcium 9.8 mg/dL (7.8-10.44); Carbon Dioxide 23 mmol/L (23-31); Chloride 105 mmol/L (98-107); Estimated GFR 100; Globulin 2.8 g/dL (2.4-3.5); Glucose 112 mg/dL (80-115); Lipase 93 U/L (8-78); Protein, Total 7.4 g/dL (5.8-8.1); Sodium 136 mmol/L (136-145)
== END 2023-12-07 11:28 | disposition home or self-care (01) ==
LOC: ERS 09:14
DX: R19.7 Diarrhea, unspecified (principal); R11.2 Nausea with vomiting, unspecified; I10 Essential (primary) hypertension; F17.200 Nicotine dependence, unspecified, uncomplicated
CPT/HCPCS: 36415; 80053; 83690; 83735; 85025; 96360

== ENCOUNTER 2023-12-10 00:07 | Emergency (ER) | payer OTHER ==
[2023-12-10 02:10] LABS: #Basophils 0.1 thou/uL (0.0-0.2); #Eosinphils 0.4 thou/uL (0.0-0.7); #Neutrophils 7.3 thou/uL (1.40-6.50); %Basophils 0.6 % (0.0-1.0); %Eosinophils 3.6 % (0.0-10.0); %Lymphocytes 10.3 % (21.0-51.0); %Monocytes 10.4 % (0.0-10.0); %Neutrophils 74.6 % (42.0-75.0); Hematocrit 50.7 % (42.0-52.0); Mean Corpuscular HGB CONC 33.5 g/dL (32.0-36.0); Mean Corpuscular Hemoglobin 33.1 pg (27.0-31.0); Mean Corpuscular Volume 98.8 fl (78.0-98.0); Mean Platelet Volume 9.4 fL (7.4-10.4); Platelet Count 288 10x3/uL (130-400); RBC Distribution Width 12.3 % (11.5-14.5); Red Blood Cell (RBC) Count 5.13 mill/uL (4.70-6.10); White Blood Cell (WBC) Count 9.8 10x3/uL (4.8-10.8)
[2023-12-10 02:28] LABS: Lactic Acid 0.7 mmol/L (0.5-2.2)
[2023-12-10 02:33] LABS: ALT (SGPT) 56 U/L (8-55); AST (SGOT) 41 U/L (5-34); Albumin 4.5 g/dL (3.4-4.8); Alkaline Phosphatase 84 U/L (40-110); Anion Gap 14 mmol/L (10-20); BUN (Urea Nitrogen) 15 mg/dL (8.4-25.7); Bilirubin, Total 0.4 mg/dL (0.2-1.2); Calc. Creatinine Clearance 0 mL/min (70-130); Calcium 9.4 mg/dL (7.8-10.44); Carbon Dioxide 25 mmol/L (23-31); Chloride 102 mmol/L (98-107); Estimated GFR 97; Glucose 89 mg/dL (80-115); Potassium 3.9 mmol/L (3.5-5.1); Protein, Total 7.5 g/dL (5.8-8.1); Sodium 137 mmol/L (136-145)
[2023-12-10] MEDS ORDERED: Metoclopramide HCl 10 MG (2 mL) VIAL ONE (03:20)
[2023-12-10] MEDS ORDERED: Ketorolac Tromethamine 30 MG (1 mL) VIAL ONE (03:20)
[2023-12-10] MEDS ORDERED: diphenhydrAMINE 50 MG/ML VIAL ONE (03:20)
[2023-12-10 03:54] LABS: SARS-CoV-2 NAA Rapid Test DETECTED (NotDetected)
== END 2023-12-10 06:27 | disposition home or self-care (01) ==
LOC: ERS 00:07
DX: U07.1 COVID-19 (principal); E78.00 Pure hypercholesterolemia, unspecified; I10 Essential (primary) hypertension; F17.200 Nicotine dependence, unspecified, uncomplicated
CPT/HCPCS: 0240U; 70450; 80053; 83605; 85025; 87040; 36415; 96374; 96375; J1200; J1885; J2765

== ENCOUNTER 2025-10-17 21:23 | Emergency (ER) | payer OTHER ==
[2025-10-17] MEDS ORDERED: Cyclobenzaprine 10 MG TAB ONE (22:51)
[2025-10-17 23:01] LABS: #Basophils 0.10 10x3/uL (0.0-0.2); #Eosinophils 0.43 10x3/uL (0.0-0.7); #Monocytes 1.36 10x3/uL (0.11-0.59); #Neutrophils 8.69 10x3/uL (1.40-6.50); %Basophils 0.7 % (0.0-1.0); %Eosinophils 3.1 % (0.0-10.0); %Lymphocytes 22.8 % (21.0-51.0); %Monocytes 9.8 % (0.0-10.0); %Neutrophils 62.9 % (42.0-75.0); Hematocrit 48.3 % (42.0-52.0); Hemoglobin 16.5 g/dL (14.0-18.0); Mean Corpuscular Hemoglobin 33.1 pg (27.0-31.0); Mean Corpuscular Volume 97.0 fL (78.0-98.0); Platelet Count 279 10x3/uL (130-400); Red Blood Cell (RBC) Count 4.98 mill/uL (4.70-6.10); White Blood Cell (WBC) Count 13.82 10x3/uL (4.8-10.8)
[2025-10-17 23:21] LABS: ALT (SGPT) 28 U/L (Less than 45); AST (SGOT) 29 U/L (11-34); Albumin 4.2 g/dL (3.1-4.5); Alkaline Phosphatase 105 U/L (40-110); Anion Gap 18 mmol/L (10-20); BUN (Urea Nitrogen) 22 mg/dL (8.4-25.7); Bilirubin, Total 0.1 mg/dL (0.3-1.2); Calc. Creatinine Clearance 0 mL/min (70-130); Calcium 9.6 mg/dL (7.8-10.44); Carbon Dioxide 24 mmol/L (23-31); Chloride 104 mmol/L (98-107); Globulin 3.5 g/dL (2.4-3.5); Glucose 120 mg/dL (80-115); Potassium 4.1 mmol/L (3.5-5.1); Sodium 142 mmol/L (136-145)
== END 2025-10-18 01:15 | disposition home or self-care (01) ==
LOC: ERS 21:23
DX: M54.2 Cervicalgia (principal); I10 Essential (primary) hypertension; F17.200 Nicotine dependence, unspecified, uncomplicated
CPT/HCPCS: 72125; 80053; 85025; 96374